=== PATIENT | female | born 1980 | race Caucasian/White ===

== ENCOUNTER 2025-09-06 16:03 | Emergency (ER) | payer OTHER, SELFPAY ==
[2025-09-06 16:06] VITALS: BP 135/81; BMI 22.0
--- NOTE | 2025-09-06 16:10 | ED.GENMED ---
History of Present Illness
<Yair Hernandez PA-C - Last Filed: 09/06/25 17:15>
General
Chief Complaint: Gynecological Problem
Source: patient
Exam Limitations: none
Time Seen by Provider: 09/06/25 16:10
History of Present Illness
History of Present Illness:
45-year-old female brought in by law enforcement from [facility] after being arrested today and a preadmission scan presenting for possible vaginal foreign body. Patient does not think there is anything there. Patient is giving consent for will. She
tried herself to remove anything and there was not anything there. No other complaints at this time
Phy Exam
<Yair Hernandez PA-C - Last Filed: 09/06/25 17:15>
Physical Exam
Physical Exam:
General: Well-appearing female in no acute respiratory distress
HEENT: Normal cephalic atraumatic pelvic exam performed with female director merit system in the room. Was done using adequate overhead lighting and speculum. Cervix was identified all areas around the cervix were inspected side of the vaginal canal
inspected. There is no visible foreign body
Course
<Yair Hernandez PA-C - Last Filed: 09/06/25 17:15>
Orders/Labs/Results
Orders:
Orders
09/06/25 16:33
CR Abdomen - 1 View Urgent
Comment:
Reason For Exam: foriegn body
09/06/25 16:52
CR Pelvis - 1 Or 2 Views Urgent
Comment:
Reason For Exam: foreign body
Vital Signs
Initial and Last Documented VS:
Initial Vital Signs
Temp Pulse Resp BP Pulse Ox
97.5 F 86 16 135/81 100
09/06/25 16:06 09/06/25 16:06 09/06/25 16:06 09/06/25 16:06 09/06/25 16:06
Last Documented Vital Signs
Temp Pulse Resp BP Pulse Ox
97.5 F 86 16 135/81 100
09/06/25 16:06 09/06/25 16:06 09/06/25 16:06 09/06/25 16:06 09/06/25 16:06
<Feliciano Chang DO - Last Filed: >
Orders/Labs/Results
Orders:
Orders
09/06/25 16:33
CR Abdomen - 1 View Urgent
Comment:
Reason For Exam: foriegn body
09/06/25 16:52
CR Pelvis - 1 Or 2 Views Urgent
Comment:
Reason For Exam: foreign body
Vital Signs
Initial and Last Documented VS:
Initial Vital Signs
Temp Pulse Resp BP Pulse Ox
97.5 F 86 16 135/81 100
09/06/25 16:06 09/06/25 16:06 09/06/25 16:06 09/06/25 16:06 09/06/25 16:06
Last Documented Vital Signs
Temp Pulse Resp BP Pulse Ox
97.5 F 86 16 135/81 100
09/06/25 16:06 09/06/25 16:06 09/06/25 16:06 09/06/25 16:06 09/06/25 16:06
<Yair Hernandez PA-C - Last Filed: 09/06/25 17:15>
MDM/Problems Addressed
Differential Diagnosis Includes:
Patient brought here Bio[employer] solution for possible vaginal foreign body. Patient given written consent for cleft lip exam. There is no visible foreign body. X-rays were ordered to confirm.
<Yair Hernandez PA-C - Last Filed: 09/06/25 17:15>
*Pulse Oximetry
Patient hypoxic: no
*Critical Care Note
Total Time (30-74mins, 75-104mins- exclusive of procedures): Not Applicable
<AHSAN Cuellar-Diana - Last Filed: 09/06/25 17:15>
Update Note
Update Note:
Patient had x-rays of the abdomen and pelvis and there is no visible radiopaque foreign body visualized on x-ray. There is no foreign body noted on pelvic exam. At this point no indication for any further intervention. Stable for discharge to
[facility]
ED Attending Note
<Feliciano Chang DO - Last Filed: >
-
Portions of this chart may have been created with voice recognition software.� Occasional wrong word or��sound alike� substitutions may have occurred due to the inherent limitations of voice recognition software.
Discharge Plan
Departure
Patient Disposition: Home (Routine Discharge)
Date of Disposition: 09/06/25
Time of Disposition: 17:15
Patient with high blood pressure during this ER visit?: No
Discharge Problem:
evaluation for possible foreign body
Referrals:
Darnell Phipps DO [Family Provider, Family Practice]
Activity Restrictions/Additional Instructions:
There is no foreign bodies noted on exam nor on x-ray. She is medically cleared for incarceration
Interventions
Interventions:
*General Assessment Last Done: 09/06/25 16:06
*Neglect/Abuse Screening Last Done: 09/06/25 16:06
*ED COVID-19 Vaccine History Last Done: 09/06/25 16:06
*ED Influenza Vaccine History Last Done: 09/06/25 16:06
[facility] Risk Assessment Tool Last Done: 09/06/25 16:06
*Risk Screen - Suicide (C-SSRS) Last Done: 09/06/25 16:06
ED-Female Genitourinary Assessment Last Done: 09/06/25 16:06
Discharge Date and Time
Print Language: NAURUAN
== END 2025-09-06 17:20 ==
LOC: EMR 16:03
PROVIDERS: EMERGENCY PHYSICIAN Emergency Medicine; FAMILY PHYSICIAN Family Medicine
DX: Z04.89 Encounter for examination and observation for other specified reasons (principal); Z65.3 Problems related to other legal circumstances
CPT/HCPCS: 99283; 74018